=== PATIENT | female | born 1955 | race Caucasian/White ===

== ENCOUNTER → 2020-06-20 08:42 | Outpatient (BNVA) | payer BC, SELFPAY | PROVIDERS: Visit Provider Nurse Practitioner Family | DX: I10 Essential (primary) hypertension (principal) | CPT/HCPCS: 80053; 80061; 83735; 84443; 85025 ==

== ENCOUNTER 2020-08-27 14:46 | Outpatient (CLI) | payer BC, SELFPAY ==
--- NOTE | 2020-08-27 15:00 | MM_ITS ---
WS: [id number] BILATERAL DIGITAL SCREENING MAMMOGRAPHY WITH CAD CLINICAL INFORMATION: Z12.39 - Encounter for other screening for malignant neoplasm of breast HISTORY: Screening mammogram. No current complaints. COMPARISON: TECHNIQUE: Bilateral CC and MLO views. FINDINGS: Scattered fibroglandular densities bilaterally. No suspicious focal mass, asymmetry, calcifications, or architectural distortion. No evidence of malignancy. A few punctate calcifications right breast. MM/[place] [id number] IMPRESSION: BI-RADS: 2-Benign FOLLOW UP: 1 Year Follow-up Recommend return to annual screening mammography.
== END 2020-08-27 14:47 | disposition home or self-care (01) ==
LOC: RADSHAW 14:49
PROVIDERS: PCP Nurse Practitioner Family; Visit Provider Nurse Practitioner Family
DX: Z12.31 Encounter for screening mammogram for malignant neoplasm of breast (principal)
CPT/HCPCS: 77067

== ENCOUNTER 2020-09-03 15:03 | Outpatient (CLI) | payer BC, SELFPAY ==
--- NOTE | 2020-09-03 15:15 | XR_ITS ---
WS: [id number] SCREENING DEXA SCAN [employer] CLINICAL INFORMATION: Z78.0 - Asymptomatic menopausal state COMPARISON: None. FINDINGS: The L1-L4 bone mineral density measures 0.987 g/cm2. This corresponds to a T score score of -1.6 and Z score of -0.1. Left femoral neck bone mineral density measures 0.831 g/cm2. This corresponds to a T score of -1.4 an d Z score of -0.2. Right femoral neck bone mineral density measures 0.866 g/cm2. This corresponds to a T score -1.1of an d Z score of 0.0. Mean femoral neck bone mineral density measures 0.848 g/cm2. This corresponds to a T score of -1.3 an d Z score of -0.1. XR/XR DEXA axial skeleton* [id number] IMPRESSION: Osteopenia Patient's FRAX calculated 10 year probability for major osteoporotic fracture i s 16.6 % and osteoporotic hip fracture is 2.3%.
== END 2020-09-03 15:04 | disposition home or self-care (01) ==
LOC: RADWPI 15:08
PROVIDERS: PCP Nurse Practitioner Family; Visit Provider Nurse Practitioner Family
DX: Z78.0 Asymptomatic menopausal state (principal); M85.88 Other specified disorders of bone density and structure, other site
CPT/HCPCS: 77080

== ENCOUNTER → 2020-10-12 11:16 | Outpatient (BNVA) | payer BC, SELFPAY | PROVIDERS: PCP Nurse Practitioner Family; Visit Provider Nurse Practitioner Family | DX: I10 Essential (primary) hypertension (principal); M79.641 Pain in right hand; M79.642 Pain in left hand | CPT/HCPCS: 80053; 80061; 84443; 85025; 85651; 86038; 86140; 86431 ==

== ENCOUNTER → 2020-11-27 13:20 | Outpatient (BNVA) | payer BC, SELFPAY | PROVIDERS: PCP Nurse Practitioner Family; Visit Provider Nurse Practitioner Family | DX: R25.1 Tremor, unspecified (principal) | CPT/HCPCS: 80053; 82607; 83735; 84439; 84443; 84481; 85025 ==

== ENCOUNTER → 2021-01-28 09:48 | Outpatient (BNVA) | payer BC, SELFPAY | PROVIDERS: PCP Nurse Practitioner Family; Referring Provider Nurse Practitioner Family; Visit Provider Specialist | DX: G25.0 Essential tremor (principal); Z87.891 Personal history of nicotine dependence | CPT/HCPCS: 99203 ==

== ENCOUNTER → 2021-11-05 11:52 | Outpatient (BNVA) | payer BC, MEDICARE, SELFPAY | PROVIDERS: PCP Nurse Practitioner Family; Visit Provider Nurse Practitioner Family | DX: Z00.00 Encounter for general adult medical examination without abnormal findings (principal); I10 Essential (primary) hypertension; N32.81 Overactive bladder; R25.1 Tremor, unspecified; M85.80 Other specified disorders of bone density and structure, unspecified site; J30.9 Allergic rhinitis, unspecified; K59.00 Constipation, unspecified; Z12.31 Encounter for screening mammogram for malignant neoplasm of breast; Z86.010 Personal history of colon polyps | CPT/HCPCS: 80053; 80061; 82306; 82607; 83735; 84439; 84443; 85025 ==

== ENCOUNTER 2021-11-26 09:26 | Outpatient (CLI) | payer MEDICARE, BC, SELFPAY ==
--- NOTE | 2021-11-26 09:47 | MM_ITS ---
WS: [id number] BILATERAL SCREENING 3D TOMOSYNTHESIS DIGITAL MAMMOGRAM WITH CAD HISTORY: Z12.31 - Encounter for screening mammogram for malignant ... COMPARISON: 08/27/2019 and 11/14/2016 Bilateral CC and MLO views submitted. Computer aided detection analyzed. Breast composition: There are scattered areas of fibroglandular density. No suspicious masses, microc alcifications or architectural distortion. MM/[place] [id number] IMPRESSION: BI-RADS: 1-Negative FOLLOW UP: 1 Year Follow-up
== END 2021-11-26 09:27 | disposition home or self-care (01) ==
LOC: RAD 09:28
PROVIDERS: PCP Nurse Practitioner Family; Visit Provider Nurse Practitioner Family
DX: Z12.31 Encounter for screening mammogram for malignant neoplasm of breast (principal)
CPT/HCPCS: 77063; 77067

== ENCOUNTER 2022-03-13 06:20 | Day surgery (SDC) | payer BC, SELFPAY ==
[2022-03-11 10:03] VITALS: BMI 27.4
[2022-03-13 06:39] VITALS: BP 152/99; PULSE 71; RESP 18; TEMP 35.9; O2SAT 93
[2022-03-13] MEDS: sodium chloride 0.9% 1,000 ML 30 ML IV (06:49)
--- NOTE | 2022-03-13 06:50 | P.HP_ITS ---
Same Day Surgery H&P Indication for Procedure/HPI DATE OF PROCEDURE: March 13, 2022 CHIEF COMPLAINT/INDICATIONFOR SURGICAL PROCEDURE: History of colon polyps PREOP DIAGNOSIS: History of colon polyps PLANNED PROCEDURE: Operation Date: 03/13/22 07:30 Proposed Procedures p Colonoscopy 01167/history of colon polyps Z86.010(Not Applicable) - Oj Gaines MD Interim history 03/13/2022 This is a pleasant 66 years old female patient with history of colon polyps. Comes today for surveillance colonoscopy ROS All systems have been reviewed negative except as for the above or per problem list. Medications/Allergies* Home Medications Medication Instructions Recorded Confirmed Type svrijlr-xjfhtteod-azauzsu D2 500 1 tab PO DAILY 10/12/20 03/13/22 History mg-50 mg-100 unit chewable tablet cetirizine 10 mg tablet 10 mg PO DAILY 10/12/20 03/13/22 History numxwphjeqmb-prpwoobp-ekekyn 1 tab PO DAILY 10/12/20 03/13/22 History tablet (Vitrum Senior) naproxen sodium 220 mg tablet 220 mg PO BID PRN Pain 10/12/20 03/13/22 History polyethylene glycol 3350 17 17 g PO DAILY 01/28/21 03/13/22 History gram/dose oral powder (Miralax) hydrochlorothiazide 12.5 mg capsule 12.5 mg PO DAILY 03/11/22 03/13/22 History losartan 100 mg tablet 100 mg PO DAILY 03/11/22 03/13/22 History solifenacin 5 mg tablet (Vesicare) 5 mg PO DAILY 03/11/22 03/13/22 History Allergies/Adverse Reactions Allergy/AdvReac Type Severity Reaction Status Date / Time No Known Allergies Allergy Verified 03/13/22 06:50 Current Medications: Generic Name Dose Route Start Last Admin Trade Name Freq PRN Reason Stop Dose Admin Sodium Chloride 1,000 mls @ 30 mls/hr 03/13/22 06:30 03/13/22 06:49 Sodium Chloride 0.9% IV 30 mls/hr .Q24H DANIAL Administration Pertinent History/Comorbid Conditions* Surgical History (Updated 06/19/20 @ 11:25 by OLENA Carias) Hx of colonoscopy was done in 2016; due for repeat in 2021; polyp Social History Smoking and tobacco status: former smoker (28 yrs ago quit) Quit status (tobacco): has quit using tobacco Year quit tobacco: 1994 Former quit date comment: PPD x 10 yrs Second hand smoke exposure: No Alcohol intake: current Alcohol intake frequency: holidays/special occasions only Alcohol type: wine Lives independently: Yes Household members: spouse Marital status: service: No Current occupational status: retired History of recent travel: No Current gender identity: Female Special sharda needs: No Agree to transfusion: Yes Pertinent Exam Findings alert, oriented x 3, regular rate & rhythm and procedure specific exam findings (Abdominal examination nontender nondistended soft) Recommendations Surgery/Procedure today (Surveillance colonoscopy) Coding Level of Care Code Acute 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
--- NOTE | 2022-03-13 07:41 | ANES.PREANE2 ---
Pre-Anesthetic Assessment Height/Weight: Height 1.63 m Weight 72.575 kg Temp Pulse Resp BP Pulse Ox O2 Del Method 96.7 F L 71 18 152/99 93 03/13/22 06:39 03/13/22 06:39 03/13/22 06:39 03/13/22 06:39 03/13/22 06:39 03/13/22 06:39 Preop Diagnosis: History of colon polyps Operation Date: 03/13/22 07:30 Proposed Procedures p Colonoscopy 47154/history of colon polyps Z86.010(Not Applicable) - Oj Gaines MD Familial anesthetic complications: none Was Beta William taken within 24 hours: N/A Was Clonidine taken within 24 hours: N/A Last intake: Intake Last Liquid Date 03/12/22 Last Liquid Time 22:00 Last Solid Date 03/12/22 Last Solid Time 00:00 Social Alcohol and No tobacco Exam alert, oriented x 3, clear to auscultation bilaterally and regular rate & rhythm Airway Submandibular: within normal limits Cervical ROM: within normal limits Mallampati: Class II History/ROS No significant history except as noted Pulmonary None reported CV/HEM Hypertension None reported Hepatic None reported GI None reported Metabolic None reported Musc/skel None reported Neuropsych None reported Anesthetic Plan ASA status: 2 Anesthesia: Anesthesia Evaluation and MAC Risk of > 500 ml blood loss (7ml/kg in children): No Medications/Allergies Home Medications Medication Instructions Recorded Confirmed Last Taken Type msgtabr-krrvxnqxf-wycpalx D2 500 1 tab PO DAILY 10/12/20 03/13/22 03/11/22 History mg-50 mg-100 unit chewable tablet cetirizine 10 mg tablet 10 mg PO DAILY 10/12/20 03/13/22 03/11/22 History iwprarfwbjqx-fngxtgdk-pxdztb 1 tab PO DAILY 10/12/20 03/13/22 03/11/22 History tablet (Vitrum Senior) naproxen sodium 220 mg tablet 220 mg PO BID PRN Pain 10/12/20 03/13/22 03/11/22 History polyethylene glycol 3350 17 17 g PO DAILY 01/28/21 03/13/22 03/11/22 History gram/dose oral powder (Miralax) alendronate 70 mg tablet (Fosamax) 70 mg PO .weekly #12 tabs 09/10/21 03/13/22 03/06/22 Rx hydrochlorothiazide 12.5 mg capsule 12.5 mg PO DAILY 03/11/22 03/13/22 03/12/22 History losartan 100 mg tablet 100 mg PO DAILY 03/11/22 03/13/22 03/12/22 History solifenacin 5 mg tablet (Vesicare) 5 mg PO DAILY 03/11/22 03/13/22 03/11/22 History Allergies Allergy/AdvReac Type Severity Reaction Status Date / Time No Known Allergies Allergy Verified 03/13/22 06:50 Current Medications Generic Name Dose Route Start Last Admin Trade Name Freq PRN Reason Stop Dose Admin Sodium Chloride 1,000 mls @ 30 mls/hr 03/13/22 06:30 03/13/22 06:49 Sodium Chloride 0.9% IV 30 mls/hr .Q24H DANIAL Administration PFSH Anesthesia Surgical History Hx of colonoscopy was done in 2016; due for repeat in 2021; polyp Social History Smoking and tobacco status: former smoker (28 yrs ago quit) Quit status (tobacco): has quit using tobacco Year quit tobacco: 1994 Former quit date comment: PPD x 10 yrs Second hand smoke exposure: No Alcohol intake: current Alcohol intake frequency: holidays/special occasions only Alcohol type: wine Lives independently: Yes Household members: spouse Marital status: service: No Current occupational status: retired History of recent travel: No Current gender identity: Female Special sharda needs: No Agree to transfusion: Yes Data Anesthesia Cardiac Studies: No Data to Display
[2022-03-13 07:48] VITALS: BP 130/76; PULSE 59; RESP 12; TEMP 36.1; O2SAT 100
[2022-03-13 08:02] VITALS: BP 138/79; PULSE 55; RESP 16; O2SAT 95
--- NOTE | 2022-03-13 11:17 | ANE.PACU2 ---
Inpatient post-anesthesia follow up: Airway intact: Yes Vital signs: Temperature 97 F Pulse Rate 55 Respiratory Rate 16 Blood Pressure 138/79 Pulse Oximetry 95 Oxygen Delivery Me thod Room Air Oxygen Flow Rate Fraction of Inspir ed Oxygen Hydration adequate: Yes Nausea and vomiting: No Pain level: 1 Mental status: Baseline
== END 2022-03-13 08:14 | disposition home or self-care (01) ==
PROVIDERS: PCP Nurse Practitioner Family; Visit Provider Surgery
PROC: 0DJD8ZZ Inspection of Lower Intestinal Tract, Via Natural or Artificial Opening Endoscopic (ICD-10-PCS; CPT 45378; principal; 2022-03-13 07:30)
DX: Z12.11 Encounter for screening for malignant neoplasm of colon (principal); Z86.010 Personal history of colon polyps; Z87.891 Personal history of nicotine dependence; I10 Essential (primary) hypertension
CPT/HCPCS: 45378; J2704; J7030

== ENCOUNTER → 2022-03-31 14:10 | Outpatient (BNVA) | payer BC, SELFPAY | PROVIDERS: PCP Nurse Practitioner Family; Visit Provider Nurse Practitioner Family | DX: M79.641 Pain in right hand (principal) | CPT/HCPCS: 73130 ==

== ENCOUNTER → 2022-04-22 10:38 | Outpatient (BNVA) | payer BC, SELFPAY | PROVIDERS: PCP Nurse Practitioner Family; Visit Provider Student in an Organized Health Care Education/Training Program | DX: M18.11 Unilateral primary osteoarthritis of first carpometacarpal joint, right hand (principal); M19.031 Primary osteoarthritis, right wrist | CPT/HCPCS: 73130 ==

== ENCOUNTER 2022-04-22 15:09 | Outpatient (CLI) | payer BC, SELFPAY | END 2022-04-22 15:10 | disposition home or self-care (01) | LOC: SPT 15:10 | PROVIDERS: PCP Nurse Practitioner Family; Visit Provider Student in an Organized Health Care Education/Training Program | DX: M18.11 Unilateral primary osteoarthritis of first carpometacarpal joint, right hand (principal) | CPT/HCPCS: 97760; L3924 ==

== ENCOUNTER → 2022-09-29 14:37 | Outpatient (BNVA) | payer BC, SELFPAY | PROVIDERS: PCP Nurse Practitioner Family; Visit Provider Nurse Practitioner Family | DX: R06.02 Shortness of breath (principal) | CPT/HCPCS: 71046; 80053; 82607; 85025; 85379 ==

== ENCOUNTER 2022-10-07 17:01 | Outpatient (CLI) | payer BC, SELFPAY ==
--- NOTE | 2022-10-07 17:00 | CTR_ITS ---
PROCEDURE INFORMATION: Exam: CTA Chest With Contrast Exam date and time: 10/07/2022 5:27 PM Age: 67 years old Clinical indication: Patient HX: Covid 1 month ago, shortness of breath x 2 weeks; Additional info: R06.02 - shortness of breath TECHNIQUE: Imaging protocol: Computed tomographic angiography of the chest with contrast. 3D rendering (Not supervised by radiologist): MIP and/or 3D reconstructed images were created by the technologist. Radiation optimization: All CT scans at this facility use at least one of these dose optimization techniques: automated exposure control; mA and/or kV adjustment per patient size (includes targeted exams where dose is matched to clinical indication); or iterative reconstruction. Contrast material: OMNIPAQUE 350; Contrast volume: 95 ml; Contrast route: INTRAVENOUS (IV); REPORTING DATA: Count of CT and Cardiac NM exams in prior 12 months: This patient has received 0 known CTs and 0 known cardiac nuclear medicine studies in the 12 months prior to the current study. COMPARISON: CR XR chest 2V* [id number] 09/29/2022 2:43 PM RADIATION DOSE METRICS: Total DLP (mGy-cm): 286.99 FINDINGS: Pulmonary arteries: Normal. No pulmonary emboli. Aorta: Ectatic ascending aorta to 4.1 cm. Lungs: Calcified subpleural right lower lobe nodule measuring 7 mm series 5, image 30 likely a granuloma. Minimal consolidation or atelectasis medial right middle lobe and inferior lingula. Pleural spaces: Unremarkable. No pneumothorax. No pleural effusion. Heart: Unremarkable. No cardiomegaly. No pericardial effusion. Coronary arteries: Mild coronary artery atherosclerosis. Lymph nodes: Unremarkable. No enlarged lymph nodes. Bones/joints: Unremarkable. No acute fracture. Soft tissues: Unremarkable. CT/CT angio chest [id number] IMPRESSION: 1. No pulmonary embolus. 2. Minimal consolidation or atelectasis medial right middle lobe and inferior lingula. Correlate for pulmonary infection.
[2022-10-07] MEDS: iohexol 350 mg/mL 500 mL Btl (per mL) IV (17:38)
== END 2022-10-07 17:02 | disposition home or self-care (01) ==
LOC: RAD 17:05
PROVIDERS: PCP Nurse Practitioner Family; Visit Provider Nurse Practitioner Family
DX: R06.02 Shortness of breath (principal)
CPT/HCPCS: 71275; Q9967

== ENCOUNTER → 2022-12-09 12:00 | Outpatient (BNVA) | payer BC, SELFPAY | PROVIDERS: PCP Nurse Practitioner Family; Visit Provider Nurse Practitioner Family | DX: I10 Essential (primary) hypertension (principal); Z78.0 Asymptomatic menopausal state | CPT/HCPCS: 80053; 80061; 82306; 82607; 83735; 84443; 85025 ==

== ENCOUNTER 2023-01-02 12:36 | Outpatient (CLI) | payer BC, SELFPAY ==
--- NOTE | 2023-01-02 13:00 | XR_ITS ---
WS: [id number] SCREENING DEXA SCAN [employer] CLINICAL INFORMATION: M85.80 - Other specified disorders of bone density and st... COMPARISON: September 03, 2020 FINDINGS: The L1-L4 bone mineral density measures 1.045 g/cm2. This corresponds to a T score score of -1.1 and Z score of 0.1. Left femoral neck bone mineral density measures 0.868 g/cm2. This corresponds to a T score of -1.1 an d Z score of -0.1. Right femoral neck bone mineral density measures 0.868 g/cm2. This corresponds to a T score -1.1of an d Z score of -0.1. Mean femoral neck bone mineral density measures 0.868 g/cm2. This corresponds to a T score of -1.1 an d Z score of -0.1. XR/XR DEXA axial skeleton* [id number] IMPRESSION: Osteopenia lumbar spine and femoral necks at the lower end of the range. Patient's FRAX calculated 10 year probability for major osteoporotic fracture i s 16.2 % and osteoporotic hip fracture is 2.2%. Bone mineral density lumbar spine has increased 5.9% since 2020 Bone mineral density femoral necks has increased 2.4% since 2020
== END 2023-01-02 12:37 | disposition home or self-care (01) ==
PROVIDERS: PCP Nurse Practitioner Family; Visit Provider Nurse Practitioner Family
DX: Z13.820 Encounter for screening for osteoporosis (principal); M85.89 Other specified disorders of bone density and structure, multiple sites
CPT/HCPCS: 77080

== ENCOUNTER → 2023-01-08 09:51 | Outpatient (BNVA) | payer BC, SELFPAY | PROVIDERS: PCP Nurse Practitioner Family; Visit Provider Nurse Practitioner Family | DX: R74.8 Abnormal levels of other serum enzymes (principal) | CPT/HCPCS: 80053 ==

== ENCOUNTER → 2023-10-07 10:50 | Outpatient (BNVA) | payer BC, SELFPAY | PROVIDERS: PCP Nurse Practitioner Family; Visit Provider Nurse Practitioner Family | DX: R53.83 Other fatigue (principal); I10 Essential (primary) hypertension; M85.80 Other specified disorders of bone density and structure, unspecified site | CPT/HCPCS: 80053; 80061; 82306; 82607; 83735; 84439; 84443; 85025; 86618; 86666; 86757 ==

== ENCOUNTER 2023-10-14 10:53 | Outpatient (CLI) | payer BC, SELFPAY ==
--- NOTE | 2023-10-14 11:00 | MM_ITS ---
WS: [id number] SCREENING DIGITAL TOMOSYNTHESIS MAMMOGRAM WITH CAD HISTORY: Z12.39 - Encounter for other screening for malignant neop... COMPARISON: 11/26/2021 and from 08/27/2020 Bilateral CC and MLO with tomosynthesis views submitted. Synthetic mammography reviewed. Computer aid ed detection analyzed. Breast composition: There are scattered areas of fibroglandular density. No suspicious masses, microc alcifications or architectural distortion. IMPRESSION: MM/[place] [id number] BI-RADS: 1-Negative FOLLOW UP: 1 Year Follow-up
== END 2023-10-14 10:54 | disposition home or self-care (01) ==
LOC: RAD 10:53
PROVIDERS: PCP Nurse Practitioner Family; Visit Provider Nurse Practitioner Family
DX: Z12.31 Encounter for screening mammogram for malignant neoplasm of breast (principal)
CPT/HCPCS: 77063; 77067

== ENCOUNTER 2023-11-10 12:30 | Outpatient (CLI) | payer BC, SELFPAY | END 2023-11-10 12:31 | disposition home or self-care (01) | LOC: SLEEP 11-11 10:46 | PROVIDERS: PCP Nurse Practitioner Family; Visit Provider Nurse Practitioner Family | DX: G47.33 Obstructive sleep apnea (adult) (pediatric) (principal) | CPT/HCPCS: G0399 ==

== ENCOUNTER → 2024-08-17 10:01 | Outpatient (BNVA) | payer MEDICARE, OTHER, SELFPAY | PROVIDERS: PCP Nurse Practitioner Family; Visit Provider Nurse Practitioner Family | DX: I10 Essential (primary) hypertension (principal) | CPT/HCPCS: 80053; 80061; 83735; 84443; 85025 ==

== ENCOUNTER → 2025-05-02 11:28 | Outpatient (BNVA) | payer MEDICARE, OTHER, SELFPAY | PROVIDERS: PCP Nurse Practitioner Family; Visit Provider Nurse Practitioner Family | DX: Z00.00 Encounter for general adult medical examination without abnormal findings (principal); I10 Essential (primary) hypertension; E55.9 Vitamin D deficiency, unspecified | CPT/HCPCS: 80053; 80061; 82306; 84443; 85025 ==

== ENCOUNTER 2025-05-15 13:57 | Outpatient (CLI) | payer MEDICARE, OTHER, SELFPAY ==
--- NOTE | 2025-05-15 14:00 | MM_ITS ---
WS: [id number] BILATERAL 3D TOMOSYNTHESIS DIGITAL SCREENING MAMMOGRAPHY WITH CAD CLINICAL INFORMATION: Z12.39 - Encounter for other screening for malignant neop... HISTORY: Screening mammogram. No current complaints. COMPARISON: 2023 TECHNIQUE: Bilateral CC and MLO views. FINDINGS: Scattered fibroglandular densities bilaterally. No suspicious focal mass, asymmetry, calcifications, or architectural distortion. No evidence of malignancy. A few tiny incidental punctate calcifications. MM/MM [facility] tomosynthesis [id number] IMPRESSION: DENSITY: There are scattered areas of fibroglandular density. BI-RADS: 2 - Benign. FOLLOW UP: 1 Year Follow-up Recommend return to annual screening mammography.
--- NOTE | 2025-05-15 14:30 | XR_ITS ---
WS: [id number] DEXA (DUAL ENERGY X-RAY ABSORPTIOMETRY) Bone mineral density was performed using a [email or web address] machine. HISTORY: Z78.0 - Asymptomatic menopausal state COMPARISON: 01/02/2023 Lumbar spine BMD (L1-L4): 1.101 T score: -0.8 Z score: 0.4 Total hip BMD: Left: 0.878 g/cm2. T score: -1.0 Z score: 0.1 Right: 0.905 g/cm2. T score: -0.8 Z score: 0.3 10 year probability of a major osteoporotic fracture is 14.6%. Compared to the prior study from 01/02/2023. Lumbar spine bone mineral density has increased by 5.4%. Bilateral hips bone mineral density has increased by 2.8%. XR/XR DEXA axial skeleton* [id number] IMPRESSION: OSTEOPENIA based upon the WHO classification for females. Significant increase in bone mineral density within both the lumbar spine and h ips since the prior study.
== END 2025-05-15 13:58 | disposition home or self-care (01) ==
LOC: RAD 13:58
PROVIDERS: PCP Nurse Practitioner Family; Visit Provider Nurse Practitioner Family
DX: Z12.31 Encounter for screening mammogram for malignant neoplasm of breast (principal); Z13.820 Encounter for screening for osteoporosis; Z78.0 Asymptomatic menopausal state; R92.323 Mammographic fibroglandular density, bilateral breasts; R92.1 Mammographic calcification found on diagnostic imaging of breast
CPT/HCPCS: 77063; 77067; 77080